=== PATIENT | male | born 1990 | race Caucasian/White ===

== ENCOUNTER 2016-06-12 14:52 | Emergency (ER) | payer SELFPAY ==
[~2016-06-12] VITALS: Ht 182.9 cm; Wt 110.0 kg
[~2016-06-12 14:52] MED LIST: CYCL-36 PO; DICL50 PO
[2016-06-12 14:53] VITALS: BP 132/86; PULSE 102; RESP 20; TEMP 97.5; O2SAT 99
--- NOTE | 2016-06-12 16:16 | PD ---
HPI Chief Complaint: Pain: Acute or Chronic Time Seen by Provider: 16:16 Travel History International Travel<30 days: No Contact w/Intl Traveler<30days: No Traveled to known affect area: No History of Present Illness HPI 25-year-old male presents to the emergency department for evaluation of midsternal chest pain that started yesterday morning upon awakening. He states that has been constant, but waxing and waning since then. He states that currently he has 2/10 chest pain. He denies any exacerbating factors such as deep breathing, cough, movement. He denies any cough or congestion. No fevers or chills. He states that the pain will start in the epigastric region and radiated up to his chest. He states that the pain will cause him to be short of breath. Patient denies any cardiac history. He denies any IV drug use. Patient denies any family cardiac history that he notes. He denies any recent surgery or travel. No history DVT/PE. No hemoptysis. PFSH Past Medical History ADHD: No Cancer: No Cardiovascular Problems: No Diabetes: No Diminished Hearing: No Psychiatric: Yes (depression, substance abuse) Immunizations Current: Yes Migraines: No Seizures: No Thyroid Disease: No Ulcer: No Tetanus Vaccination: > 5 Years Influenza Vaccination: No Past Surgical History Appendectomy: No Cholecystectomy: No Tonsillectomy: Yes Social History Alcohol Use: Yes Tobacco Use: Yes Substance Use: No Allergies-Medications (Allergen,Severity, Reaction): Coded Allergies: No Known Allergies (Verified , 06/02/15) Reported Meds & Prescriptions Reported Meds & Active Scripts Active No Active Prescriptions or Reported Medications Review of Systems Except as stated in HPI: all other systems reviewed are Neg Physical Exam Narrative GENERAL: Well-developed well-nourished male patient, ambulatory. Afebrile. SKIN: Warm and dry. HEAD: Normocephalic. Atraumatic. EYES: No scleral icterus. No injection or drainage. NECK: Supple, trachea midline. No JVD or lymphadenopathy. CARDIOVASCULAR: Regular rate and rhythm without murmurs, gallops, or rubs. RESPIRATORY: Breath sounds equal bilaterally. No accessory muscle use. Lungs sounds are clear to auscultation. GASTROINTESTINAL: Abdomen soft, non-tender, nondistended. MUSCULOSKELETAL: No cyanosis, or edema. I am unable to reproduce midsternal chest pain with palpation. BACK: Nontender without obvious deformity. No CVA tenderness. Data Data Last Documented VS Vital Signs Date Time Temp Pulse Resp B/P Pulse Ox O2 Delivery O2 Flow Rate FiO2 06/12/16 18:08 77 20 98 Room Air 06/12/16 14:53 97.5 Orders Electrocardiogram (06/12/16 ) Basic Metabolic Panel (Bmp) (06/12/16 16:14) Ckmb (Isoenzyme) Profile (06/12/16 16:14) Complete Blood Count With Diff (06/12/16 16:14) Magnesium (Mg) (06/12/16 16:14) Troponin I (06/12/16 16:14) Chest, Pa & Lat (06/12/16 ) Lipase (06/12/16 16:17) CKMB (06/12/16 16:17) CKMB% (06/12/16 16:17) Pantoprazole (Protonix) (06/12/16 19:00) Ketorolac Inj (Toradol Inj) (06/12/16 19:00) Labs Laboratory Tests Test 06/12/16 16:17 White Blood Count 10.3 TH/MM3 Red Blood Count 4.94 MIL/MM3 Hemoglobin 15.1 GM/DL Hematocrit 43.5 % Mean Corpuscular Volume 87.9 FL Mean Corpuscular Hemoglobin 30.5 PG Mean Corpuscular Hemoglobin 34.7 % Concent Red Cell Distribution Width 13.9 % Platelet Count 257 TH/MM3 Mean Platelet Volume 8.5 FL Neutrophils (%) (Auto) 66.7 % Lymphocytes (%) (Auto) 22.5 % Monocytes (%) (Auto) 8.9 % Eosinophils (%) (Auto) 1.5 % Basophils (%) (Auto) 0.4 % Neutrophils # (Auto) 6.9 TH/MM3 Lymphocytes # (Auto) 2.3 TH/MM3 Monocytes # (Auto) 0.9 TH/MM3 Eosinophils # (Auto) 0.2 TH/MM3 Basophils # (Auto) 0.0 TH/MM3 CBC Comment DIFF FINAL Differential Comment Sodium Level 141 MEQ/L Potassium Level 3.7 MEQ/L Chloride Level 106 MEQ/L Carbon Dioxide Level 29.7 MEQ/L Anion Gap 5 MEQ/L Blood Urea Nitrogen 16 MG/DL Creatinine 1.11 MG/DL Estimat Glomerular Filtration 82 ML/MIN Rate Random Glucose 110 MG/DL Calcium Level 8.7 MG/DL Magnesium Level 2.0 MG/DL Total Creatine Kinase 158 U/L Creatine Kinase MB 1.9 NG/ML Troponin I LESS THAN 0.02 NG/ML Lipase 69 U/L MDM Medical Decision Making Medical Screen Exam Complete: Yes Emergency Medical Condition: Yes Medical Record Reviewed: Yes Differential Diagnosis Chest wall pain versus ACS versus pneumonia versus pneumothorax versus pericarditis versus unlikely PE Narrative Course 25-year-old male presents to the emergency department for evaluation of epigastric abdominal pain that radiates up to the chest. EKG, CBC, BMP, CK, troponin, magnesium, lipase, chest x-ray are ordered and pending. Workup is initiated in triage. Once a medical bed becomes available, patient will be transferred and care assumed by that provider. Scripts No Active Prescriptions or Reported Meds Jewels Capps Jun 12, 2016 16:16
--- NOTE | 2016-06-12 16:53 | RADRPT ---
EXAM DATE/TIME: 06/12/2016 16:50 [facility] COMPARISON: No previous studies available for comparison. INDICATIONS : Chest pain and shortness of breath. MEDICAL HISTORY : Smoker. SURGICAL HISTORY : None. ENCOUNTER: Initial ACUITY: 2 days PAIN SCORE: 3/10 LOCATION: chest midline. FINDINGS: PA and lateral views of the chest demonstrate the lungs to be symmetrically aerated without evidence of mass, infiltrate or effusion. The cardiomediastinal contours are unremarkable. Osseous structure s are intact. CONCLUSION: No acute cardiopulmonary process. Romain Huggins MD on June 12, 2016 at 16:51 Board Certified Radiologist. This report was verified electronically.
[2016-06-12 17:03] LABS: AUTOMATED NEUTROPHIL # 6.9 TH/MM3 (1.8-7.7); BASOPHIL % 0.4 % (0.0-2.0); EOSINOPHIL # 0.2 TH/MM3 (0-0.4); EOSINOPHIL % 1.5 % (0.0-4.0); HEMATOCRIT 43.5 % (39.0-51.0); HEMO FLAGS DIFF FINAL; LYMPH % 22.5 % (9.0-44.0); LYMPHOCYTE # 2.3 TH/MM3 (1.0-4.8); MEAN CELL VOLUME 87.9 FL (80.0-100.0); MEAN CORPUSCULAR HEMOGLOBIN 30.5 PG (27.0-34.0); MEAN CORPUSCULAR HGB CONC 34.7 % (32.0-36.0); MONO % 8.9 % (0.0-8.0); NEUT % 66.7 % (16.0-70.0); PLATELET COUNT 257 TH/MM3 (150-450); RED BLOOD COUNT 4.94 MIL/MM3 (4.50-5.90); RED CELL DISTRIBUTION WIDTH 13.9 % (11.6-17.2); WHITE BLOOD COUNT 10.3 TH/MM3 (4.0-11.0)
[2016-06-12 17:24] LABS: ANION GAP 5 MEQ/L (5-15); BICARBONATE 29.7 MEQ/L (21.0-32.0); CHLORIDE 106 MEQ/L (98-107); GLOMERULAR FILTRATION RATE 82 ML/MIN (>89); POTASSIUM 3.7 MEQ/L (3.5-5.1); SODIUM (NA) 141 MEQ/L (136-145)
[2016-06-12 17:32] LABS: BLOOD UREA NITROGEN 16 MG/DL (7-18); CREATINE KINASE 158 U/L (39-308)
[2016-06-12 17:44] LABS: CKMB 1.9 NG/ML (0.5-3.6)
[2016-06-12 18:08] VITALS: PULSE 77; RESP 20; O2SAT 98
--- NOTE | 2016-06-12 18:59 | PD ---
Physical Exam Narrative I, Dr. Hyman, have reviewed the advance practice practitioner's documentation and am in agreement, met with the patient face to face, made the diagnosis, and the medical decision making was done by me. *My assessment and Findings: Atypical chest pain vs. GERD vs. costochondritis vs. musculoskeletal pain 25yo M with no significant PMH presents to the ED with c/o midsternal chest pain since yesterday as well as burning epigastric pain. Pt has been drink alcohol heavily over the weekend. Denies any fever, cough, sob. Pt denies sudden cardiac in his family. Pain is very atypical. Will give protonix and toradol IM. Labs reviewed, no leukocytosis. Troponin negative. Lipase low. CXR showed no acute cardiopulmonary process. Pt feels better after medication and wants to go home. Tolerating PO. Data Data Last Documented VS Vital Signs Date Time Temp Pulse Resp B/P Pulse Ox O2 Delivery O2 Flow Rate FiO2 06/12/16 18:08 77 20 98 Room Air 06/12/16 14:53 97.5 Orders Electrocardiogram (06/12/16 ) Basic Metabolic Panel (Bmp) (06/12/16 16:14) Ckmb (Isoenzyme) Profile (06/12/16 16:14) Complete Blood Count With Diff (06/12/16 16:14) Magnesium (Mg) (06/12/16 16:14) Troponin I (06/12/16 16:14) Chest, Pa & Lat (06/12/16 ) Lipase (06/12/16 16:17) CKMB (06/12/16 16:17) CKMB% (06/12/16 16:17) Pantoprazole (Protonix) (06/12/16 19:00) Ketorolac Inj (Toradol Inj) (06/12/16 19:00) Labs Laboratory Tests Test 06/12/16 16:17 White Blood Count 10.3 TH/MM3 Red Blood Count 4.94 MIL/MM3 Hemoglobin 15.1 GM/DL Hematocrit 43.5 % Mean Corpuscular Volume 87.9 FL Mean Corpuscular Hemoglobin 30.5 PG Mean Corpuscular Hemoglobin 34.7 % Concent Red Cell Distribution Width 13.9 % Platelet Count 257 TH/MM3 Mean Platelet Volume 8.5 FL Neutrophils (%) (Auto) 66.7 % Lymphocytes (%) (Auto) 22.5 % Monocytes (%) (Auto) 8.9 % Eosinophils (%) (Auto) 1.5 % Basophils (%) (Auto) 0.4 % Neutrophils # (Auto) 6.9 TH/MM3 Lymphocytes # (Auto) 2.3 TH/MM3 Monocytes # (Auto) 0.9 TH/MM3 Eosinophils # (Auto) 0.2 TH/MM3 Basophils # (Auto) 0.0 TH/MM3 CBC Comment DIFF FINAL Differential Comment Sodium Level 141 MEQ/L Potassium Level 3.7 MEQ/L Chloride Level 106 MEQ/L Carbon Dioxide Level 29.7 MEQ/L Anion Gap 5 MEQ/L Blood Urea Nitrogen 16 MG/DL Creatinine 1.11 MG/DL Estimat Glomerular Filtration 82 ML/MIN Rate Random Glucose 110 MG/DL Calcium Level 8.7 MG/DL Magnesium Level 2.0 MG/DL Total Creatine Kinase 158 U/L Creatine Kinase MB 1.9 NG/ML Troponin I LESS THAN 0.02 NG/ML Lipase 69 U/L [facility] Supervised Visit with CANDE: Yes Interpretation(s) EKG: NSR 78bpm. Normal axis. TWI III. No ST segment elevation or depression. Laboratory Tests Test 06/12/16 16:17 White Blood Count 10.3 TH/MM3 (4.0-11.0) Red Blood Count 4.94 MIL/MM3 (4.50-5.90) Hemoglobin 15.1 GM/DL (13.0-17.0) Hematocrit 43.5 % (39.0-51.0) Mean Corpuscular Volume 87.9 FL (80.0-100.0) Mean Corpuscular Hemoglobin 30.5 PG (27.0-34.0) Mean Corpuscular Hemoglobin 34.7 % Concent (32.0-36.0) Red Cell Distribution Width 13.9 % (11.6-17.2) Platelet Count 257 TH/MM3 (150-450) Mean Platelet Volume 8.5 FL (7.0-11.0) Neutrophils (%) (Auto) 66.7 % (16.0-70.0) Lymphocytes (%) (Auto) 22.5 % (9.0-44.0) Monocytes (%) (Auto) 8.9 % (0.0-8.0) Eosinophils (%) (Auto) 1.5 % (0.0-4.0) Basophils (%) (Auto) 0.4 % (0.0-2.0) Neutrophils # (Auto) 6.9 TH/MM3 (1.8-7.7) Lymphocytes # (Auto) 2.3 TH/MM3 (1.0-4.8) Monocytes # (Auto) 0.9 TH/MM3 (0-0.9) Eosinophils # (Auto) 0.2 TH/MM3 (0-0.4) Basophils # (Auto) 0.0 TH/MM3 (0-0.2) CBC Comment DIFF FINAL Differential Comment Sodium Level 141 MEQ/L (136-145) Potassium Level 3.7 MEQ/L (3.5-5.1) Chloride Level 106 MEQ/L (98-107) Carbon Dioxide Level 29.7 MEQ/L (21.0-32.0) Anion Gap 5 MEQ/L (5-15) Blood Urea Nitrogen 16 MG/DL (7-18) Creatinine 1.11 MG/DL (0.60-1.30) Estimat Glomerular Filtration 82 ML/MIN (>89) Rate Random Glucose 110 MG/DL (74-106) Calcium Level 8.7 MG/DL (8.5-10.1) Magnesium Level 2.0 MG/DL (1.5-2.5) Total Creatine Kinase 158 U/L (39-308) Creatine Kinase MB 1.9 NG/ML (0.5-3.6) Troponin I LESS THAN 0.02 NG/ML (0.02-0.05) Lipase 69 U/L (73-393) Last Impressions Chest X-Ray 06/12/16 0000 Signed Impressions: Service Date/Time: Sunday, June 12, 2016 16:50 - CONCLUSION: No acute cardiopulmonary process. Romain Huggins MD Diagnosis Primary Impression: Atypical chest pain Patient Instructions: General Instructions Departure Forms: Tests/Procedures Additional Instruction: Please follow up with your PMD in 3-7 days. Return to the ED if symptoms worsen. Med/Other Pt SpecificInfo: Prescription(s) given Scripts Omeprazole 40 Mg Cap40 Mg PO DAILY 7 Days Ref 0 Prov:Alesia Hyman DO 06/12/16 Disposition: 01 DISCHARGE HOME Condition: Stable Alesia Hyman DO Jun 12, 2016 18:59
[2016-06-12] MEDS ORDERED: PANTOPRAZOLE SOD 40 MG DELAYED RELEASE TAB PO ONE (19:00)
[2016-06-12] MEDS ORDERED: KETOROLAC TROMETHAMINE 60 MG/2 ML (IM) VIAL IM ONE (19:00)
[2016-06-12] MEDS ORDERED: OMEP40CA2 PO (20:49)
--- NOTE | 2016-06-13 10:59 | EKG ---
Date Performed: 06/12/2016 Time Performed: 15:05:47 PTAGE: 25 years EKG: Sinus rhythm NORMAL ECG NO PREVIOUS TRACING DOCTOR: Donovan Cosme Interpretating Date/Time 06/13/2016 10:58:53
== END 2016-06-12 21:06 | disposition home or self-care (01) ==
LOC: NEPA 14:52
DX: R07.89 Other chest pain (principal); R06.02 Shortness of breath
CPT/HCPCS: 71020; 80048; 82550; 82552; 83690; 83735; 84484; 85025; 93005; 96372; 99285; J1885